=== PATIENT | female | born 1975 | race Caucasian/White ===

== ENCOUNTER 2016-05-21 11:04 | Inpatient (IN) | payer BC ==
[~2016-05-21] VITALS: Ht 165.1 cm; Wt 141.3 kg
[~2016-05-21 11:04] MED LIST: AMPYRA10 MG PO; AMRIX15 MG PO; BACLOFEN10 MG PO; BACLOFEN20 MG PO; BENADRYL25 MG PO; Bumex PO; CARDIZEM CD,CA120 MG PO; CARDIZEM CD,CA360 MG PO; CARDIZEM CD240 MG PO; CARDIZEM120 MG PO; COPAXONE; CYMBALTA60 MG PO; DILTIAZEM ER60 MG PO; ENABLEX7.5 MG PO; ENDOCET 5-3251 EACH PO; FLEXERIL5 MG PO; GAS-X125 MG PO; MOTRIN800 MG PO; OXYCODONE HCL5 MG PO; PANTOPRAZOLE SO40 MG PO; POTASSIUM; PROAIR HFA8.5 GM IH; Percocet 7.5/325,End PO; Proventil,Ventolin H IH; RYBIX ODT50 MG PO; Skelaxin PO; TAZTIA XT240 M1 PO; ULTRACET1 TABLET PO; VITAMIN B12-FO1 EACH PO; VITAMIN D3; XANAX0.25 MG PO
[2016-05-21 12:54] LABS: MCH 27.4 PG (29.0-34.0); MCHC 31.8 G/DL (30.0-36.0); MCV 86.1 FL (83-99); RBC DIS.WIDTH-CV 19.7 % (11.8-14.6); RBC DIS.WIDTH-SD 60.1 % (39-53); RED BLOOD COUNT 4.53 M/uL (3.80-5.20); WHITE BLOOD COUNT 7.1 K/uL (4.1-10.2)
[2016-05-21 13:00] LABS: EOSINOPHIL (%) 3.6 % (0-5); EOSINOPHIL COUNT 0.3 K/uL (0-0.3); IMMATURE GRANULOCYTE (%) 1.7 % (0.0-0.7); IMMATURE GRANULOCYTE COUNT 1.2 K/uL; LYMPHOCYTE COUNT 2.8 K/uL (1.0-2.8); MONOCYTE (%) 9.8 % (3-12); MONOCYTE COUNT 0.7 K/uL (0-0.8); NEUTROPHIL (%) 44.9 % (45-76); NEUTROPHIL COUNT 3.2 K/uL (1.8-6.4)
[2016-05-21 13:13] LABS: CHLORIDE 104 mEq/L (99-109); POTASSIUM 5.9 mEq/L (3.7-5.4); SODIUM 140 mEq/L (136-147)
[2016-05-21 13:15] LABS: GLUCOSE 160 mg/dL (70-99)
[2016-05-21 13:16] LABS: ANION GAP 13 MEQ/L (2-14)
[2016-05-21 13:17] LABS: TOTAL BILIRUBIN 0.6 mg/dL (0.0-1.0)
[2016-05-21 13:19] LABS: ALKALINE PHOSPHATASE 77 IU/L (3-129); GFR ESTIMATE (CALCULATED) 40 mL/min/
[2016-05-21 13:20] LABS: UREA NITROGEN (BUN) 35 mg/dL (9-23)
[2016-05-21 13:55] LABS: ADD MIUA? YES; BILIRUBIN NEGATIVE; BLOOD LARGE; COLOR YELLOW ((YELLOW)); GLUCOSE (STRIP) NEGATIVE; KETONES 5; LEUKOCYTES LARGE; NITRITE NEGATIVE; PROTEIN (STRIP) 100; SPECIFIC GRAVITY 1.016 (1.000-1.030); UROBILINOGEN 0.2 MG/DL (0.2-1.0)
[2016-05-21 14:02] LABS: BACTERIA 1+ /HPF; EPITHELIAL CELLS RARE /HPF; HYALINE CASTS 0-5 /LPF; MUCUS TRACE /LPF; RED BLOOD CELLS 20-30 /HPF (0-5); UCUL ADDED? NO; UNCLASSIFIED CASTS 0-5 /LPF; UNCLASSIFIED CRYSTALS 3+ /HPF; WHITE BLOOD CELLS 30-40 /HPF (0-5)
[2016-05-21 15:29] LABS: HEMATOLOGY COMMENT 1 SMEAR COMPATIBLE; MEAN PLAT.VOLUME 9.7 uM^3 (9.5-12.4); PLAT.SUFFICIENCY DECREASED; PLATELET COUNT 42 K/uL (156-360)
[2016-05-21] MEDS ORDERED: CARDIZEM CD360 MG PO (16:16)
[2016-05-21] MEDS ORDERED: TRAMADOL HCL50 MG PO (16:17)
[2016-05-21] MEDS ORDERED: SENNA8.6 MG PO (16:17)
[2016-05-21] MEDS ORDERED: DAILY VITE1 EAC1 PO (16:18)
[2016-05-21] MEDS ORDERED: VITAMIN D34000 UNIT PO (16:19)
[2016-05-21] MEDS ORDERED: PRINIVIL10 MG PO (16:19)
[2016-05-21] MEDS ORDERED: OMEPRAZOLE20 MG PO (16:20)
[2016-05-21] MEDS ORDERED: NOVOLOG PE100 UNITS/ SC (16:21)
[2016-05-21] MEDS ORDERED: LORATADINE10 M2 PO (16:22)
[2016-05-21] MEDS ORDERED: FISH OIL 1,0001 EA10 PO (16:22)
[2016-05-21] MEDS ORDERED: FUROSEMIDE20 MG PO (16:23)
[2016-05-21] MEDS ORDERED: LANTUS 3 M100 UNITS1 SC (16:24)
[2016-05-21 18:18] LABS: POINT-OF-CARE METER ID UU13113702
[2016-05-21 21:05] VITALS: BP 82/52
[2016-05-21 21:25] LABS: POINT-OF-CARE METER ID UU14188625
[2016-05-21 22:00] VITALS: BP 82/52
[2016-05-21 23:52] VITALS: BP 64/43
[2016-05-22 04:30] VITALS: BP 92/43
[2016-05-22 06:48] LABS: HEMATOCRIT 35.8 % (36.0-46.0); MCH 26.9 PG (29.0-34.0); MCV 86.9 FL (83-99); RBC DIS.WIDTH-CV 19.4 % (11.8-14.6); RBC DIS.WIDTH-SD 61.1 % (39-53); RED BLOOD COUNT 4.12 M/uL (3.80-5.20)
[2016-05-22 07:21] LABS: MEAN PLAT.VOLUME 10.7 uM^3 (9.5-12.4)
[2016-05-22 07:22] LABS: PLATELET COUNT 213 K/uL (156-360)
[2016-05-22 07:41] LABS: ALKALINE PHOSPHATASE 63 IU/L (3-129); ANION GAP 10 MEQ/L (2-14); CHLORIDE 105 MEQ/L (99-109); GFR ESTIMATE (CALCULATED) 52 mL/min/; GLUCOSE 175 mg/dL (70-99); SAMPLE HEMOLYSIS CHECK 0; SAMPLE ICTERIC CHECK 0; SAMPLE LIPEMIA CHECK 0; SODIUM 142 MEQ/L (136-147); TOTAL BILIRUBIN 0.4 MG/DL (0.0-1.0); UREA NITROGEN (BUN) 32 mg/dL (9-23)
[2016-05-22 07:54] LABS: POTASSIUM 4.7 MEQ/L (3.7-5.4)
[2016-05-22 08:34] VITALS: BP 100/63
[2016-05-22 12:11] LABS: POINT-OF-CARE USER ID STWAMT51
[2016-05-22 12:41] VITALS: BP 92/43
[2016-05-22 15:07] VITALS: BP 101/50
[2016-05-22 19:59] VITALS: BP 107/59
[2016-05-22 21:12] LABS: POINT-OF-CARE METER ID UU14188625
[2016-05-22 23:48] VITALS: BP 90/47
[2016-05-23 07:06] LABS: HEMATOCRIT 32.2 % (36.0-46.0); MCHC 30.7 G/DL (30.0-36.0); MEAN PLAT.VOLUME 10.4 uM^3 (9.5-12.4); PLATELET COUNT 255 K/uL (156-360); RBC DIS.WIDTH-CV 19.4 % (11.8-14.6); RBC DIS.WIDTH-SD 61.4 % (39-53); RED BLOOD COUNT 3.66 M/uL (3.80-5.20); WHITE BLOOD COUNT 5.4 K/uL (4.1-10.2)
[2016-05-23 07:30] LABS: ALKALINE PHOSPHATASE 55 IU/L (3-129); ANION GAP 8 MEQ/L (2-14); CHLORIDE 107 MEQ/L (99-109); GFR ESTIMATE (CALCULATED) > 59 mL/min/; GLUCOSE 146 mg/dL (70-99); POTASSIUM 4.9 MEQ/L (3.7-5.4); SAMPLE HEMOLYSIS CHECK 0; SAMPLE ICTERIC CHECK 0; SAMPLE LIPEMIA CHECK 0; SODIUM 142 MEQ/L (136-147); UREA NITROGEN (BUN) 27 mg/dL (9-23)
[2016-05-23 07:32] LABS: TOTAL BILIRUBIN 0.3 MG/DL (0.0-1.0)
[2016-05-23 07:58] VITALS: BP 65/41
[2016-05-23 11:38] VITALS: BP 90/62
[2016-05-23 15:21] VITALS: BP 104/47
[2016-05-23 20:35] VITALS: BP 88/32
[2016-05-24 00:01] VITALS: BP 97/55
[2016-05-24 04:11] VITALS: BP 99/50
[2016-05-24 04:12] VITALS: BP 99/50
[2016-05-24 08:16] VITALS: BP 102/56
[2016-05-24 16:09] VITALS: BP 107/62
[2016-05-24 19:44] VITALS: BP 93/45
[2016-05-24 21:34] LABS: POINT-OF-CARE METER ID UU14174225
[2016-05-25] VITALS: BP 94/55
[2016-05-25 00:24] LABS: ADD MIUA? YES; BILIRUBIN NEGATIVE; BLOOD MODERATE; COLOR YELLOW ((YELLOW)); GLUCOSE (STRIP) NEGATIVE; KETONES NEGATIVE; LEUKOCYTES TRACE; NITRITE NEGATIVE; PROTEIN (STRIP) NEGATIVE; SPECIFIC GRAVITY 1.013 (1.000-1.030); UROBILINOGEN 0.2 MG/DL (0.2-1.0)
[2016-05-25 00:33] LABS: BACTERIA RARE /HPF; EPITHELIAL CELLS RARE /HPF; HYALINE CASTS 15-20 /LPF; MUCUS 1+ /LPF; RED BLOOD CELLS 15-20 /HPF (0-5); UNCLASSIFIED CRYSTALS 1+ /HPF
[2016-05-25 04:00] VITALS: BP 109/53
[2016-05-25 07:12] VITALS: BP 92/44
[2016-05-25 07:33] LABS: HEMATOCRIT 33.4 % (36.0-46.0); MCH 26.8 PG (29.0-34.0); MCHC 30.8 G/DL (30.0-36.0); MEAN PLAT.VOLUME 10.1 uM^3 (9.5-12.4); PLATELET COUNT 211 K/uL (156-360); RBC DIS.WIDTH-CV 19.3 % (11.8-14.6); RBC DIS.WIDTH-SD 61.2 % (39-53); RED BLOOD COUNT 3.84 M/uL (3.80-5.20); WHITE BLOOD COUNT 5.2 K/uL (4.1-10.2)
[2016-05-25 09:00] VITALS: BP 94/59
[2016-05-25 11:02] VITALS: BP 112/46
[2016-05-25] MEDS ORDERED: DILTIAZEM 24HR180 MG PO (14:39)
== END 2016-05-25 17:00 | disposition home health service (06) | DRG 698 ==
LOC: EME 11:04 → EDOF 16:57 → 5SOUTH 16:57
PROVIDERS: Emergency Medicine; Family Medicine; Internal Medicine
DX: T83.511A Infection and inflammatory reaction due to indwelling urethral catheter, initial encounter (principal); N39.0 Urinary tract infection, site not specified; G93.41 Metabolic encephalopathy; Y84.6 Urinary catheterization as the cause of abnormal reaction of the patient, or of later complication, without mention of misadventure at the time of the procedure; G82.50 Quadriplegia, unspecified; E66.01 Morbid (severe) obesity due to excess calories; Z68.43 Body mass index [BMI] 50.0-59.9, adult; G35 Multiple sclerosis; I12.9 Hypertensive chronic kidney disease with stage 1 through stage 4 chronic kidney disease, or unspecified chronic kidney disease; N18.1 Chronic kidney disease, stage 1; E11.22 Type 2 diabetes mellitus with diabetic chronic kidney disease; I48.0 Paroxysmal atrial fibrillation; J45.909 Unspecified asthma, uncomplicated; K21.9 Gastro-esophageal reflux disease without esophagitis; F32.9 Major depressive disorder, single episode, unspecified; Z66 Do not resuscitate; Z51.5 Encounter for palliative care; Z74.01 Bed confinement status
CPT/HCPCS: 70450; 71010; 78580; 80053; 81003; 82948; 85025; 85027; 93005; 94799; 99281; 99285; A9540; C9113; J0692; J0696; J1650; J1815; J2270; J7030; J7050

== ENCOUNTER 2016-09-03 13:48 | Emergency (ER) | payer BC ==
[~2016-09-03] VITALS: Ht 165.1 cm; Wt 133.0 kg
[~2016-09-03 13:48] MED LIST changes: +CARDIZEM CD360 MG PO; +DAILY VITE1 EAC1 PO; +DILTIAZEM 24HR180 MG PO; +FISH OIL 1,0001 EA10 PO; +FUROSEMIDE20 MG PO; +LANTUS 3 M100 UNITS1 SC; +LORATADINE10 M2 PO; +NOVOLOG PE100 UNITS/ SC; +OMEPRAZOLE20 MG PO; +PRINIVIL10 MG PO; +SENNA8.6 MG PO; +TRAMADOL HCL50 MG PO; +VITAMIN D34000 UNIT PO
[2016-09-03 14:35] LABS: HEMATOCRIT 37.7 % (36.0-46.0); MCH 28.2 PG (29.0-34.0); MCHC 31.3 G/DL (30.0-36.0); MEAN PLAT.VOLUME 10.1 uM^3 (9.5-12.4); PLATELET COUNT 253 K/uL (156-360); RBC DIS.WIDTH-CV 16.4 % (11.8-14.6); RBC DIS.WIDTH-SD 53.9 % (39-53); RED BLOOD COUNT 4.19 M/uL (3.80-5.20); WHITE BLOOD COUNT 8.4 K/uL (4.1-10.2)
[2016-09-03 14:44] LABS: CHLORIDE 101 mEq/L (99-109); SODIUM 138 mEq/L (136-147)
[2016-09-03 14:46] LABS: GLUCOSE 109 mg/dL (70-99)
[2016-09-03 14:47] LABS: ANION GAP 10 MEQ/L (2-14)
[2016-09-03 14:48] LABS: TOTAL BILIRUBIN 0.5 mg/dL (0.0-1.0)
[2016-09-03 14:49] LABS: ALKALINE PHOSPHATASE 73 IU/L (3-129)
[2016-09-03 14:50] LABS: GFR ESTIMATE (CALCULATED) 58 mL/min/
[2016-09-03 14:51] LABS: UREA NITROGEN (BUN) 27 mg/dL (9-23)
[2016-09-03 18:12] LABS: COLOR YELLOW ((YELLOW))
[2016-09-03 18:13] LABS: ADD MIUA? YES; BILIRUBIN NEGATIVE; BLOOD LARGE; GLUCOSE (STRIP) NEGATIVE; KETONES NEGATIVE; LEUKOCYTES MODERATE; NITRITE NEGATIVE; PROTEIN (STRIP) 300; SPECIFIC GRAVITY 1.025 (1.000-1.030); UROBILINOGEN 0.2 MG/DL (0.2-1.0)
[2016-09-03 18:22] LABS: BACTERIA 1+ /HPF; EPITHELIAL CELLS NONE SEEN /HPF; MUCUS NONE SEEN /LPF
[2016-09-03] MEDS ORDERED: BACTRIM,SEPT1 TABLET PO (20:34)
[2016-09-03] MEDS ORDERED: FLEET ENEMA-AD118 ML PR (20:34)
[2016-09-03 21:33] VITALS: BP 108/72
== END 2016-09-03 21:34 | disposition home or self-care (01) ==
LOC: EME 13:48
PROVIDERS: Emergency Medicine
DX: N39.0 Urinary tract infection, site not specified (principal); N21.0 Calculus in bladder; K59.00 Constipation, unspecified; K57.90 Diverticulosis of intestine, part unspecified, without perforation or abscess without bleeding; K76.0 Fatty (change of) liver, not elsewhere classified; Z87.442 Personal history of urinary calculi; J45.909 Unspecified asthma, uncomplicated; I10 Essential (primary) hypertension; K21.9 Gastro-esophageal reflux disease without esophagitis; G82.50 Quadriplegia, unspecified; M79.7 Fibromyalgia; E11.9 Type 2 diabetes mellitus without complications; Z79.4 Long term (current) use of insulin
CPT/HCPCS: 71010; 74176; 80053; 81003; 83605; 85027; 87040; 87077; 87086; 87186; 87801; 99281; 99284; J7030

== ENCOUNTER 2016-09-12 11:49 | Inpatient (IN) | payer BC ==
[~2016-09-12] VITALS: Ht 165.1 cm; Wt 129.0 kg
[~2016-09-12 11:49] MED LIST changes: +BACTRIM,SEPT1 TABLET PO; +FLEET ENEMA-AD118 ML PR
[2016-09-12 12:36] LABS: EOSINOPHIL (%) 9.8 % (0-5); EOSINOPHIL COUNT 0.4 K/uL (0-0.3); HEMATOCRIT 37.8 % (36.0-46.0); IMMATURE GRANULOCYTE (%) 1.2 % (0.0-0.7); IMMATURE GRANULOCYTE COUNT 0.1 K/uL; INSTRUMENT ABS NEUTROPHIL CT 1.6 K/uL; LYMPHOCYTE COUNT 1.5 K/uL (1.0-2.8); MCH 28.2 PG (29.0-34.0); MCV 88.1 FL (83-99); MEAN PLAT.VOLUME 10.2 uM^3 (9.5-12.4); MONOCYTE (%) 13.1 % (3-12); MONOCYTE COUNT 0.6 K/uL (0-0.8); NEUTROPHIL (%) 38.7 % (45-76); NEUTROPHIL COUNT 1.6 K/uL (1.8-6.4); PLATELET COUNT 210 K/uL (156-360); RBC DIS.WIDTH-CV 16.5 % (11.8-14.6); RBC DIS.WIDTH-SD 53.5 % (39-53); RED BLOOD COUNT 4.29 M/uL (3.80-5.20); WHITE BLOOD COUNT 4.2 K/uL (4.1-10.2)
[2016-09-12 12:44] LABS: CHLORIDE 101 mEq/L (99-109); POTASSIUM 5.9 mEq/L (3.7-5.4); SODIUM 134 mEq/L (136-147)
[2016-09-12 12:46] LABS: GLUCOSE 103 mg/dL (70-99)
[2016-09-12 12:47] LABS: ANION GAP 12 MEQ/L (2-14)
[2016-09-12 12:50] LABS: GFR ESTIMATE (CALCULATED) 35 mL/min/
[2016-09-12 12:51] LABS: UREA NITROGEN (BUN) 34 mg/dL (9-23)
[2016-09-12] MEDS ORDERED: BACLOFEN10 MG PO (14:50)
[2016-09-12] MEDS ORDERED: SENNA PLUS TAB1 EACH PO (14:51)
[2016-09-12] MEDS ORDERED: DILTIAZEM 24HR180 M3 PO (15:00)
[2016-09-12] MEDS ORDERED: NYATA15 GM TP (15:02)
[2016-09-12] MEDS ORDERED: PANTOPRAZOLE SO40 MG PO (15:02)
[2016-09-12] MEDS ORDERED: SYSTANE BALANCE10 ML BOTH EYES (15:03)
[2016-09-12] MEDS ORDERED: PROAIR HFA8.5 GM IH (15:03)
[2016-09-12] MEDS ORDERED: PROVENTIL,2.5 MG/3 M IH (15:04)
[2016-09-12] MEDS ORDERED: LEVOFLOXACIN750 MG PO (15:05)
[2016-09-12] MEDS ORDERED: ZETIA10 MG PO (15:05)
[2016-09-12 15:20] VITALS: BP 82/44
[2016-09-12 16:00] VITALS: BP 79/40
[2016-09-12 17:17] VITALS: BP 74/45
[2016-09-12 17:17] LABS: POINT-OF-CARE METER ID UU13113831
[2016-09-12 18:19] LABS: ADD MIUA? YES; BILIRUBIN NEGATIVE; BLOOD MODERATE; COLOR YELLOW ((YELLOW)); GLUCOSE (STRIP) NEGATIVE; KETONES NEGATIVE; LEUKOCYTES LARGE; NITRITE NEGATIVE; PROTEIN (STRIP) NEGATIVE; UROBILINOGEN 0.2 MG/DL (0.2-1.0)
[2016-09-12 18:59] LABS: BACTERIA 3+ /HPF; EPITHELIAL CELLS 1+ /HPF; MUCUS 1+ /LPF; OTHER BUDDING YEAST; UCUL ADDED? YES; WHITE BLOOD CELLS 20-30 /HPF (0-5)
[2016-09-12 19:00] VITALS: BP 80/53
[2016-09-12 19:02] LABS: UR CREATININE CONCENTRATION 64.3 MG/DL
[2016-09-13] VITALS: BP 83/54
[2016-09-13 06:54] LABS: HEMATOCRIT 32.3 % (36.0-46.0); MCH 29.2 PG (29.0-34.0); MCHC 32.5 G/DL (30.0-36.0); MCV 89.7 FL (83-99); MEAN PLAT.VOLUME 10.2 uM^3 (9.5-12.4); PLATELET COUNT 190 K/uL (156-360); RBC DIS.WIDTH-CV 16.6 % (11.8-14.6); RBC DIS.WIDTH-SD 54.4 % (39-53); WHITE BLOOD COUNT 3.9 K/uL (4.1-10.2)
[2016-09-13 07:19] LABS: ANION GAP 9 MEQ/L (2-14); CHLORIDE 104 MEQ/L (99-109); GFR ESTIMATE (CALCULATED) 40 mL/min/; GLUCOSE 97 mg/dL (70-99); SAMPLE HEMOLYSIS CHECK 0; SAMPLE ICTERIC CHECK 0; SAMPLE LIPEMIA CHECK 0; SODIUM 138 MEQ/L (136-147); UREA NITROGEN (BUN) 32 mg/dL (9-23)
[2016-09-13 07:29] LABS: POTASSIUM 4.3 MEQ/L (3.7-5.4)
[2016-09-13 08:30] VITALS: BP 82/45
[2016-09-13 08:43] LABS: POINT-OF-CARE METER ID UU13113700
[2016-09-13 11:58] VITALS: BP 86/42
[2016-09-13 12:33] LABS: POINT-OF-CARE METER ID UU13113700
[2016-09-13 16:00] VITALS: BP 93/50
[2016-09-13 17:56] LABS: POINT-OF-CARE METER ID UU13113700
[2016-09-13 20:00] VITALS: BP 102/53
[2016-09-14 04:59] VITALS: BP 99/54
[2016-09-14 07:57] VITALS: BP 99/59
[2016-09-14 11:44] VITALS: BP 101/56
[2016-09-14 15:24] VITALS: BP 104/60
[2016-09-14 19:30] VITALS: BP 119/68
[2016-09-15 03:36] VITALS: BP 100/52
[2016-09-15 08:00] VITALS: BP 104/65
[2016-09-15 08:30] LABS: POINT-OF-CARE METER ID UU14162513
[2016-09-15 12:20] VITALS: BP 111/58
[2016-09-15 12:35] LABS: POINT-OF-CARE METER ID UU14162513
[2016-09-15 16:55] VITALS: BP 110/73
[2016-09-15 17:52] LABS: POINT-OF-CARE METER ID UU14162513
[2016-09-15 20:18] VITALS: BP 111/69
[2016-09-16 03:00] VITALS: BP 114/55
[2016-09-16 08:10] LABS: POINT-OF-CARE METER ID UU14162513
[2016-09-16 09:00] VITALS: BP 122/78
[2016-09-16 11:53] VITALS: BP 109/59
[2016-09-16 12:22] LABS: POINT-OF-CARE METER ID UU14162513
[2016-09-16 14:46] LABS: HEMATOCRIT 31.8 % (36.0-46.0); MCH 28.9 PG (29.0-34.0); MCHC 32.7 G/DL (30.0-36.0); MCV 88.3 FL (83-99); MEAN PLAT.VOLUME 9.8 uM^3 (9.5-12.4); PLATELET COUNT 225 K/uL (156-360); RBC DIS.WIDTH-CV 15.4 % (11.8-14.6); RBC DIS.WIDTH-SD 49.6 % (39-53); WHITE BLOOD COUNT 4.3 K/uL (4.1-10.2)
[2016-09-16 15:43] LABS: ALKALINE PHOSPHATASE 64 IU/L (3-129); ANION GAP 10 MEQ/L (2-14); CHLORIDE 109 MEQ/L (99-109); GFR ESTIMATE (CALCULATED) > 59 mL/min/; GLUCOSE 116 mg/dL (70-99); POTASSIUM 3.8 MEQ/L (3.7-5.4); SAMPLE HEMOLYSIS CHECK 0; SAMPLE ICTERIC CHECK 0; SAMPLE LIPEMIA CHECK 0; SODIUM 141 MEQ/L (136-147); TOTAL BILIRUBIN 0.2 MG/DL (0.0-1.0)
[2016-09-16 15:44] LABS: UREA NITROGEN (BUN) 9 mg/dL (9-23)
[2016-09-16 15:47] VITALS: BP 119/62
[2016-09-16] MEDS ORDERED: ASPIR-LOW81 MG PO (15:55)
[2016-09-16] MEDS ORDERED: XANAX0.25 MG PO (15:59)
[2016-09-16] MEDS ORDERED: VENTOLIN HFA18 GM IH (16:09)
[2016-09-16 17:38] LABS: POINT-OF-CARE METER ID UU14162513
[2016-09-17 07:07] LABS: Estimated Average Glucose 117 mg/dL (70-123); HEMOGLOBIN A1c (GLYCOHEMOGLOB) 5.7 % HGB (Below 5.7)
== END 2016-09-16 18:32 | disposition home health service (06) | DRG 690 ==
LOC: EME 11:49 → EDOF 14:00 → 5WEST 14:00 → EDOF 14:00 → 5WEST 15:13 → 2EAST 09-13 22:11 → 5WEST 09-13 22:19
PROVIDERS: Emergency Medicine; Family Medicine
DX: N39.0 Urinary tract infection, site not specified (principal); L89.312 Pressure ulcer of right buttock, stage 2; L89.322 Pressure ulcer of left buttock, stage 2; L89.311 Pressure ulcer of right buttock, stage 1; L89.321 Pressure ulcer of left buttock, stage 1; E87.5 Hyperkalemia; I95.9 Hypotension, unspecified; R00.0 Tachycardia, unspecified; E28.2 Polycystic ovarian syndrome; N92.0 Excessive and frequent menstruation with regular cycle; N91.5 Oligomenorrhea, unspecified; E11.22 Type 2 diabetes mellitus with diabetic chronic kidney disease; I12.9 Hypertensive chronic kidney disease with stage 1 through stage 4 chronic kidney disease, or unspecified chronic kidney disease; N18.1 Chronic kidney disease, stage 1; G35 Multiple sclerosis; G82.20 Paraplegia, unspecified; G89.4 Chronic pain syndrome; E86.0 Dehydration; K21.9 Gastro-esophageal reflux disease without esophagitis; F32.9 Major depressive disorder, single episode, unspecified; F41.9 Anxiety disorder, unspecified; J45.909 Unspecified asthma, uncomplicated; E66.01 Morbid (severe) obesity due to excess calories; Z68.42 Body mass index [BMI] 45.0-49.9, adult; Z79.4 Long term (current) use of insulin; Z87.440 Personal history of urinary (tract) infections; Z74.01 Bed confinement status; Z80.1 Family history of malignant neoplasm of trachea, bronchus and lung; Z80.3 Family history of malignant neoplasm of breast; Z82.5 Family history of asthma and other chronic lower respiratory diseases
CPT/HCPCS: 71010; 80048; 80053; 81003; 82043; 82570; 82948; 83036; 84132 91; 84443; 85025; 85027; 87040; 87077; 87086; 87106; 87186; 93005; 93970; 94640; 99202; 99281; 99285; G0378; J0696; J1650; J1815; J7030; J7050

== ENCOUNTER 2017-01-10 16:26 | Inpatient (IN) | payer BC ==
[~2017-01-10] VITALS: Ht 165.1 cm; Wt 112.2 kg
[~2017-01-10 16:26] MED LIST changes: +ASPIR-LOW81 MG PO; +DILTIAZEM 24HR180 M3 PO; +LEVOFLOXACIN750 MG PO; +NYATA15 GM TP; +PROVENTIL,2.5 MG/3 M IH; +SENNA PLUS TAB1 EACH PO; +SYSTANE BALANCE10 ML BOTH EYES; +VENTOLIN HFA18 GM IH; +ZETIA10 MG PO
[2017-01-10 17:16] LABS: BASOPHIL COUNT 0.1 K/uL (0-0.1); EOSINOPHIL (%) 3.7 % (0-5); EOSINOPHIL COUNT 0.3 K/uL (0-0.3); HEMATOCRIT 42.6 % (36.0-46.0); IMMATURE GRANULOCYTE (%) 0.4 % (0.0-0.7); INSTRUMENT ABS NEUTROPHIL CT 4.2 K/uL; LYMPHOCYTE COUNT 2.9 K/uL (1.0-2.8); MCH 26.6 PG (29.0-34.0); MCHC 31.7 G/DL (30.0-36.0); MCV 83.9 FL (83-99); MONOCYTE (%) 7.9 % (3-12); MONOCYTE COUNT 0.6 K/uL (0-0.8); NEUTROPHIL (%) 51.9 % (45-76); NEUTROPHIL COUNT 4.2 K/uL (1.8-6.4); RBC DIS.WIDTH-CV 16.3 % (11.8-14.6); RBC DIS.WIDTH-SD 49.7 % (39-53); RED BLOOD COUNT 5.08 M/uL (3.80-5.20); WHITE BLOOD COUNT 8.1 K/uL (4.1-10.2)
[2017-01-10 17:30] LABS: CHLORIDE 104 mEq/L (99-109); POTASSIUM 4.4 mEq/L (3.7-5.4); SODIUM 140 mEq/L (136-147)
[2017-01-10 17:32] LABS: GLUCOSE 111 mg/dL (70-99)
[2017-01-10 17:34] LABS: ANION GAP 9 MEQ/L (2-14); TOTAL BILIRUBIN 0.3 mg/dL (0.0-1.0)
[2017-01-10 17:36] LABS: ALKALINE PHOSPHATASE 95 IU/L (3-129); GFR ESTIMATE (CALCULATED) > 59 mL/min/
[2017-01-10 17:37] LABS: UREA NITROGEN (BUN) 12 mg/dL (9-23)
[2017-01-10 18:05] LABS: MEAN PLAT.VOLUME 10.3 uM^3 (9.5-12.4); PLAT.SUFFICIENCY ADEQUATE; PLATELET COUNT 198 K/uL (156-360)
[2017-01-10] MEDS ORDERED: LO-DOSE ASPIRIN81 M2 PO (19:17)
[2017-01-10] MEDS ORDERED: XANAX0.25 MG PO (19:20)
[2017-01-10] MEDS ORDERED: CLARITIN,ALAVAR10 MG PO (19:26)
[2017-01-10] MEDS ORDERED: CHERATUSSIN AC473 ML PO (19:27)
[2017-01-10] MEDS ORDERED: BENGAY ULTRA S113 GM TP (19:28)
[2017-01-10] MEDS ORDERED: TYLENOL EXTRA500 MG PO (19:29)
[2017-01-10] MEDS ORDERED: PROVERA,CYCRIN10 MG PO (19:32)
[2017-01-10 21:13] VITALS: BP 141/79
[2017-01-11 03:47] VITALS: BP 120/76
[2017-01-11 07:01] LABS: HEMATOCRIT 41.3 % (36.0-46.0); MCH 26.4 PG (29.0-34.0); MCHC 31.5 G/DL (30.0-36.0); MCV 83.8 FL (83-99); MEAN PLAT.VOLUME 9.9 uM^3 (9.5-12.4); PLATELET COUNT 228 K/uL (156-360); RBC DIS.WIDTH-CV 16.4 % (11.8-14.6); RBC DIS.WIDTH-SD 50.3 % (39-53); RED BLOOD COUNT 4.93 M/uL (3.80-5.20); WHITE BLOOD COUNT 7.1 K/uL (4.1-10.2)
[2017-01-11 07:22] VITALS: BP 121/79
[2017-01-11 07:33] LABS: ANION GAP 12 MEQ/L (2-14); CHLORIDE 103 MEQ/L (99-109); GFR ESTIMATE (CALCULATED) > 59 mL/min/; GLUCOSE 86 mg/dL (70-99); SAMPLE HEMOLYSIS CHECK 0; SAMPLE ICTERIC CHECK 0; SAMPLE LIPEMIA CHECK 0; SODIUM 142 MEQ/L (136-147); UREA NITROGEN (BUN) 13 mg/dL (9-23)
[2017-01-11 07:40] LABS: TOBRAMYCIN (TROUGH) 8.9 MCG/ML (0-1.0)
[2017-01-11 11:24] VITALS: BP 134/68
[2017-01-11 16:00] VITALS: BP 115/76
[2017-01-11 19:45] VITALS: BP 128/79
[2017-01-11 23:00] VITALS: BP 115/71
[2017-01-12 03:27] VITALS: BP 116/58
[2017-01-12 09:07] VITALS: BP 116/73
[2017-01-12] MEDS ORDERED: TRAMADOL HCL50 MG PO (11:24)
== END 2017-01-12 12:50 | disposition home or self-care (01) | DRG 695 ==
LOC: EME 16:26 → EDOF 18:18 → 2EAST 18:18 → ENRESERV 18:35 → 2EAST 20:52
PROVIDERS: Emergency Medicine; Family Medicine
DX: R82.79 Other abnormal findings on microbiological examination of urine (principal); M62.838 Other muscle spasm; T78.3XXA Angioneurotic edema, initial encounter; T36.1X5A Adverse effect of cephalosporins and other beta-lactam antibiotics, initial encounter; E11.22 Type 2 diabetes mellitus with diabetic chronic kidney disease; I12.9 Hypertensive chronic kidney disease with stage 1 through stage 4 chronic kidney disease, or unspecified chronic kidney disease; G35 Multiple sclerosis; G82.50 Quadriplegia, unspecified; E66.01 Morbid (severe) obesity due to excess calories; I48.0 Paroxysmal atrial fibrillation; K21.9 Gastro-esophageal reflux disease without esophagitis; M79.7 Fibromyalgia; F32.9 Major depressive disorder, single episode, unspecified; J45.909 Unspecified asthma, uncomplicated; Z74.01 Bed confinement status; N18.1 Chronic kidney disease, stage 1; G89.4 Chronic pain syndrome; R33.9 Retention of urine, unspecified; M62.562 Muscle wasting and atrophy, not elsewhere classified, left lower leg; M62.561 Muscle wasting and atrophy, not elsewhere classified, right lower leg; N31.9 Neuromuscular dysfunction of bladder, unspecified; N39.498 Other specified urinary incontinence; Z68.41 Body mass index [BMI] 40.0-44.9, adult
CPT/HCPCS: 76770; 80048; 80053; 80200; 83605; 85025; 85027; 87077; 87086; 87186; 94010; 99202; 99281; 99285; J0692; J1200; J1650; J2185; J3260; J7050

== ENCOUNTER → 2017-05-15 | Outpatient (CLI) | payer BC ==
[~2017-05-15] MED LIST changes: +BENGAY ULTRA S113 GM TP; +CHERATUSSIN AC473 ML PO; +CLARITIN,ALAVAR10 MG PO; +LO-DOSE ASPIRIN81 M2 PO; +MTERYTI COMBO1 EACH PO; +PROVERA,CYCRIN10 MG PO; +TYLENOL EXTRA500 MG PO
== END | disposition home or self-care (01) ==
LOC: AMB 05-08 10:30
PROC: 0FJ4XZZ Inspection of Gallbladder, External Approach (ICD-10-PCS; principal; 2017-05-15)
DX: K80.20 Calculus of gallbladder without cholecystitis without obstruction (principal); G35 Multiple sclerosis; M79.4 Hypertrophy of (infrapatellar) fat pad; E11.9 Type 2 diabetes mellitus without complications; E78.5 Hyperlipidemia, unspecified; I10 Essential (primary) hypertension; F41.9 Anxiety disorder, unspecified; F32.9 Major depressive disorder, single episode, unspecified; K21.9 Gastro-esophageal reflux disease without esophagitis; Z98.1 Arthrodesis status; Z79.82 Long term (current) use of aspirin; Z88.8 Allergy status to other drugs, medicaments and biological substances
CPT/HCPCS: 99211

== ENCOUNTER 2017-05-29 09:25 | Day surgery (SDC) | payer BC ==
[~2017-05-29] VITALS: Ht 165.1 cm; Wt 113.4 kg
[~2017-05-29 09:25] MED LIST changes: +MITRAZOL 2% CRE45 GM TP
[2017-05-29] MEDS ORDERED: MILK THISTLE140 M1 PO (09:28)
[2017-05-29] MEDS ORDERED: TUMERSAID TABL1 EACH PO (09:30)
[2017-05-29 10:25] LABS: CHLORIDE 102 MEQ/L (99-109); CREATININE 0.6 MG/DL (0.6-1.3); GFR ESTIMATE (CALCULATED) > 59 mL/min/; GLUCOSE 98 mg/dL (70-99); SODIUM 140 MEQ/L (136-147); UREA NITROGEN (BUN) 16 mg/dL (9-23)
[2017-05-29 10:48] VITALS: BP 144/63
[2017-05-29] MEDS ORDERED: NORCO 5/3251 TABLET PO (14:23)
[2017-05-29 15:23] VITALS: BP 126/84
[2017-05-29 16:07] VITALS: BP 115/84
== END 2017-05-29 17:04 | disposition home or self-care (01) ==
LOC: SDC 09:25
PROVIDERS: Surgery
DX: K80.10 Calculus of gallbladder with chronic cholecystitis without obstruction (principal); G35 Multiple sclerosis; G82.50 Quadriplegia, unspecified; E11.9 Type 2 diabetes mellitus without complications; I10 Essential (primary) hypertension; E78.00 Pure hypercholesterolemia, unspecified; F41.8 Other specified anxiety disorders; J45.909 Unspecified asthma, uncomplicated; K21.9 Gastro-esophageal reflux disease without esophagitis; E66.01 Morbid (severe) obesity due to excess calories; Z68.41 Body mass index [BMI] 40.0-44.9, adult; Z79.82 Long term (current) use of aspirin
CPT/HCPCS: 74300; 80048; 81025; 84132 91; 88304; 93005; J1170; J2710; J3010; J3370; Q0175; S0020

== ENCOUNTER → 2017-06-12 | Outpatient (CLI) | payer BC ==
[~2017-06-12] MED LIST changes: +MILK THISTLE140 M1 PO; +NORCO 5/3251 TABLET PO; +TUMERSAID TABL1 EACH PO
== END | disposition home or self-care (01) ==
LOC: AMB 08:30
DX: Z09 Encounter for follow-up examination after completed treatment for conditions other than malignant neoplasm (principal); Z90.49 Acquired absence of other specified parts of digestive tract
CPT/HCPCS: 99211

== ENCOUNTER 2017-08-14 17:39 | Emergency (ER) | payer BC ==
[~2017-08-14] VITALS: Ht 165.1 cm; Wt 101.5 kg
[2017-08-14 18:49] LABS: HEMATOCRIT 41.4 % (36.0-46.0); HEMOGLOBIN 14.1 G/DL (11.9-15.5); MCH 28.5 PG (29.0-34.0); MCHC 34.1 G/DL (30.0-36.0); MCV 83.6 FL (83-99); PLATELET COUNT 262 K/uL (156-360); RBC DIS.WIDTH-CV 14.3 % (11.8-14.6); RBC DIS.WIDTH-SD 42.9 % (39-53); RED BLOOD COUNT 4.95 M/uL (3.80-5.20); WHITE BLOOD COUNT 7.5 K/uL (4.1-10.2)
[2017-08-14 18:53] LABS: APPEARANCE CLOUDY ((CLEAR)); BILIRUBIN NEGATIVE; BLOOD SMALL; COLOR AMBER ((YELLOW)); GLUCOSE (STRIP) NEGATIVE; KETONES NEGATIVE; LEUKOCYTES LARGE; NITRITE POSITIVE; PROTEIN (STRIP) 30; SPECIFIC GRAVITY 1.023 (1.000-1.030); UROBILINOGEN 0.2 MG/DL (0.2-1.0)
[2017-08-14 18:59] LABS: CHLORIDE 103 mEq/L (99-109); SODIUM 137 mEq/L (136-147)
[2017-08-14 19:01] LABS: GLUCOSE 153 mg/dL (70-99)
[2017-08-14 19:05] LABS: CREATININE 0.7 mg/dL (0.6-1.3); GFR ESTIMATE (CALCULATED) > 59 mL/min/
[2017-08-14 19:06] LABS: UREA NITROGEN (BUN) 14 mg/dL (9-23)
[2017-08-14 19:13] LABS: QUANTITATIVE HCG < 4.0 MIU/ML
[2017-08-14 20:45] LABS: EPITHELIAL CELLS RARE /HPF; WHITE BLOOD CELLS 40-50 /HPF (0-5)
[2017-08-14 20:46] LABS: BACTERIA 2+ /HPF; CALCIUM OXALATE CRYSTALS RARE /HPF; MUCUS RARE /LPF; UCUL ADDED? YES
[2017-08-14 20:47] LABS: AMORPHOUS URATES CRYSTALS 1+
[2017-08-14 22:13] VITALS: BP 113/84
== END 2017-08-14 22:13 | disposition home or self-care (01) ==
LOC: EME 17:39
PROVIDERS: Nurse Practitioner Family
DX: N93.9 Abnormal uterine and vaginal bleeding, unspecified (principal); N39.0 Urinary tract infection, site not specified; G82.50 Quadriplegia, unspecified; Z79.82 Long term (current) use of aspirin
CPT/HCPCS: 76856; 80048; 81003; 84702; 85027; 87086; 99281; 99285